=== PATIENT | female | born 1945 | race Caucasian/White ===

== ENCOUNTER → 2017-04-15 | Outpatient (CLI) | payer OTHER | LOC: BMCIMAGING 12:56 | PROVIDERS: ATTEND Internal Medicine Hematology & Oncology | DX: Z12.31 Encounter for screening mammogram for malignant neoplasm of breast (principal); Z85.3 Personal history of malignant neoplasm of breast | CPT/HCPCS: G0202 ==

== ENCOUNTER → 2017-07-26 | Outpatient (CLI) | payer OTHER | LOC: BMCIMAGING 09:31 | PROVIDERS: ATTEND Internal Medicine Endocrinology, Diabetes & Metabolism | DX: Z13.820 Encounter for screening for osteoporosis (principal); M85.80 Other specified disorders of bone density and structure, unspecified site ==

== ENCOUNTER → 2018-04-19 | Outpatient (CLI) | payer OTHER | LOC: BMCIMAGING 12:10 | PROVIDERS: ATTEND Internal Medicine Hematology & Oncology | DX: Z12.31 Encounter for screening mammogram for malignant neoplasm of breast (principal); Z85.3 Personal history of malignant neoplasm of breast; Z85.038 Personal history of other malignant neoplasm of large intestine ==

== ENCOUNTER → 2018-04-29 | Outpatient (CLI) | payer OTHER | LOC: BMCIMAGING 14:53 | PROVIDERS: ATTEND Internal Medicine Endocrinology, Diabetes & Metabolism | DX: E04.2 Nontoxic multinodular goiter (principal) | CPT/HCPCS: 76536-PO ==